=== PATIENT | male | born 1995 | race Caucasian/White ===

== ENCOUNTER 2017-04-20 22:03 | Emergency (ER) | payer OTHER ==
[~2017-04-20] VITALS: Wt 77.5 kg
[2017-04-21] MEDS ORDERED: ACETAMINOPHEN 500 MG TAB PO STA (04:18)
[2017-04-21] MEDS ORDERED: IBUP400T22 PO (04:20)
[2017-04-21] MEDS ORDERED: ACET325T33 PO (04:20)
[2017-04-21] MEDS ORDERED: OSLT75C PO (04:20)
[2017-04-21] MEDS ORDERED: IBUPROFEN 600 MG TAB PO ONE (05:30)
[2017-04-21 05:48] VITALS: BP 122/62; PULSE 94; RESP 16; TEMP 100.6
--- NOTE | 2017-04-24 13:29 | ERD ---
ER Documentation Chief Complaint Date/Time DATE: 04/24/17 TIME: 13:22 Chief Complaint AP, Body malaise. Fever x3 days HPI This is a 21 year old male presenting to ER with body aches, headache, malaise, tactile fevers and abdominal pain x 3 days. Patient denies nausea, vomiting or diarrhea. No black or bloody stools. No recent travel or recent antibiotic use. No localized area of abdominal tenderness. No dysuria, hematuria, urinary frequency or urinary urgency. Patient denies cough, shortness of breath or difficulty breathing.No sore throat or difficulty swallowing. No earache. Patient reports some nasal congestion and rhinitis. Patient reports the body aches and malaise as the most significant symptom he's having. ROS All systems reviewed and are negative except as per history of present illness. Medications Home Meds Active Scripts Ibuprofen* (Motrin*) 400 Mg Tab, 400 MG PO Q6, #15 TAB Prov:ENRIQUE OSORIO NP 04/21/17 Acetaminophen* (Tylenol*) 325 Mg Tablet, 1 TAB PO Q6 Y for PAIN AND OR ELEVATED TEMP, #20 TAB Prov:ENRIQUE OSORIO NP 04/21/17 Oseltamivir Phosphate* (Tamiflu*) 75 Mg Capsule, 75 MG PO BID for 5 Days, CAP Prov:ENRIQUE OSORIO NP 04/21/17 Allergies Allergies: Coded Allergies: No Known Allergy (Unverified , 04/20/17) PMhx/Soc Medical and Surgical Hx: pt denies Medical Hx, pt denies Surgical Hx Hx Alcohol Use: No Hx Substance Use: No Hx Tobacco Use: No Smoking Status: Never smoker Physical Exam Vitals Vital Signs Date Time Temp Pulse Resp B/P Pulse Ox O2 Delivery O2 Flow Rate FiO2 04/21/17 05:48 100.6 94 16 122/62 98 Room Air 04/20/17 22:45 101.6 100 98 117/61 100 Physical Exam Const: No acute distress, alert, oriented to person, place and time Head: Atraumatic Eyes: Normal Conjunctiva, PERRLA ENT: Normal External Ears, Nose and Mouth. Neck: Full range of motion..~ No meningismus. Resp: Clear to auscultation bilaterally. No wheezing, rhonchi or crackles. No stridor or labored breathing. Cardio: Regular rate and rhythm, no murmurs Abd: Soft, non tender, non distended. Normal bowel sounds Skin: No petechiae or rashes Back: No midline or flank tenderness Ext: No cyanosis, or edema Neur: Awake and alert Psych: Normal Mood and Affect Results 24 hrs Current Medications Medications (Trade) Dose Ordered Sig/Tyler Route PRN Reason Start Time Stop Time Status Last Admin Dose Admin Acetaminophen (Tylenol Tab) 500 mg ONCE STAT PO 04/21/17 04:18 04/21/17 04:19 DC 04/21/17 04:28 Ibuprofen (Motrin) 600 mg ONCE ONCE PO 04/21/17 05:30 04/21/17 05:31 DC 04/21/17 05:14 Procedures/MDM MDM: 21 year old male presents to ER with 3 day history of body aches, fever, malaise, headache and abdominal pain. Temp of 101.6F upon arrival to ER. Patient given Tylenol. Fever now trending down. No active vomiting or diarrhea. Abdominal exam is unremarkable. No guarding or localized tenderness. Patient's main complaint is generalized body aches and malaise. No s/s repsiratory distress. No difficulty breathing or labored breathing. No wheezing. Patient remains alert, calm and cooperative. Vital signs remain stable. Low suspicion for pneumonia, pleural effusion, pneumothorax or acute MA. Differential diagnosis includes but not limited to URI, influenza, otitis media , otitis externa, asthma exacerbation, croup, bronchitis, bronchiolitis and costochondritis. Patient is appropriate for outpatient management and will be given prescription for ibuprofen, Tylenol and Tamiflu. Instructed patient to follow-up with primary care provider in the next 2-3 days for reassessment and additional management. Return to ED for any high fever, chest pain, difficulty breathing, shortness breath, wheezing, vomiting, diarrhea, abdominal pain or any new or worsening symptoms. Patient verbalizes understanding. All questions answered at discharge. Departure Diagnosis: Primary Impression: Influenza Condition: Stable Patient Instructions: Influenza (Adult) Referrals: COMM[facility] YOU HAVE RECEIVED A MEDICAL SCREENING EXAM AND THE RESULTS INDICATE THAT YOU DO NOT HAVE A CONDITION THAT REQUIRES URGENT TREATMENT IN THE EMERGENCY DEPARTMENT. FURTHER EVALUATION AND TREATMENT OF YOUR CONDITION CAN WAIT UNTIL YOU ARE SEEN IN YOUR DOCTORS OFFICE WITHIN THE NEXT 1-2 DAYS. IT IS YOUR RESPONSIBILITY TO MAKE AN APPOINTMENT FOR FOLOW-UP CARE. IF YOU HAVE A PRIMARY DOCTOR --you should call your primary doctor and schedule an appointment IF YOU DO NOT HAVE A PRIMARY DOCTOR YOU CAN CALL OUR PHYSICIAN REFERRAL HOTLINE AT IF YOU CAN NOT AFFORD TO SEE A PHYSICIAN YOU CAN CHOSE FROM THE FOLLOWING [facility] [address] [facility] [address] [facility] [address] [facility] [address] [facility] [address] [facility]. [facility] [address] [facility]. [facility] YOU HAVE RECEIVED A MEDICAL SCREENING EXAM AND THE RESULTS INDICATE THAT YOU DO NOT HAVE A CONDITION THAT REQUIRES URGENT TREATMENT IN THE EMERGENCY DEPARTMENT. FURTHER EVALUATION AND TREATMENT OF YOUR CONDITION CAN WAIT UNTIL YOU ARE SEEN IN YOUR DOCTORS OFFICE WITHIN THE NEXT 1-2 DAYS. IT IS YOUR RESPONSIBILITY TO MAKE AN APPOINTMENT FOR FOLOW-UP CARE. IF YOU HAVE A PRIMARY DOCTOR --you should call your primary doctor and schedule and appointment IF YOU DO NOT HAVE A PRIMARY DOCTOR YOU CAN CALL OUR PHYSICIAN REFERRAL HOTLINE AT . IF YOU CAN NOT AFFORD TO SEE A PHYSICIAN YOU CAN CHOSE FROM THE FOLLOWING [facility]: [facility] [address] [place] [address] [facility] [address] [place] [address] [facility] [address] [place] [address] Additional Instructions: Call your primary care doctor TOMORROW for an appointment during the next 2-3 days.See the doctor sooner or return here if your condition worsens before your appointment time. Return to ED for any high fever, chest pain, difficulty breathing, shortness breath, wheezing, vomiting, diarrhea, abdominal pain or any new or worsening symptoms. ENRIQUE OSORIO NP April 24, 2017 13:29
== END 2017-04-21 05:50 | disposition home or self-care (01) ==
LOC: FTE 22:03
DX: J11.1 Influenza due to unidentified influenza virus with other respiratory manifestations (principal)
CPT/HCPCS: Z7610 ×2; 99283

== ENCOUNTER 2018-03-20 17:58 | Emergency (ER) | END 2018-03-20 20:31 | disposition home or self-care (01) ==

== ENCOUNTER 2018-12-20 21:33 | Emergency (ER) | payer OTHER ==
[~2018-12-20] VITALS: Ht 170.2 cm; Wt 77.2 kg
[~2018-12-20 21:33] MED LIST: ACET325T33 PO; DOCU-144 PO; IBUP-1561 PO; OSEL75CA23 PO; RANI75TA13 PO
[2018-12-20 21:38] VITALS: BP 133/67; PULSE 99; RESP 19; Ht 170.2 cm; Wt 77.2 kg
[2018-12-20] MEDS ORDERED: DEXAMETHASONE 10 MG/ML 1 ML INJ IM ONE (22:30)
[2018-12-20] MEDS ORDERED: ONDANSETRON (ODT) 4 MG TAB ODT STA (22:30)
[2018-12-20] MEDS ORDERED: IBUPROFEN 800 MG TAB PO ONE (22:30)
[2018-12-20] MEDS ORDERED: CEFTRIAXONE 1 GM INJ IM ONE (22:30)
--- NOTE | 2018-12-20 22:30 | ERD ---
ER Documentation Chief Complaint Chief Complaint ST WITH FEVER X1DAY HPI This is a 23-year-old male who presents here in emergency department with complaints of left-sided throat pain since yesterday and fever. Denies headache, head injury, loss of consciousness, dizziness, neck pain, neck stiffness, throat pain, difficulty swallowing, difficulty breathing lying flat, shoulder pain, chest pain, back pain, abdominal pain, nausea, vomiting, c onstipation, diarrhea, urinary symptoms, loss of bowel and bladder control, trauma, injury, falls, difficulty walking due to pain, numbness or tingling sensation, calf pain, recent travel, recent major surgery in the last 3 weeks, calf pain, recent long travel, recent exposure to any illness, recent antibiotic use in the last 3 months, fever, chills, seizures. Past medical history: Surgical history: Social: Denies smoking, use of alcoholic beverages, use of illegal drugs. ROS All systems reviewed and are negative except as per history of present illness. Medications Home Meds Active Scripts Ondansetron Hcl* (Zofran*) 4 Mg Tablet, 4 MG PO Q8H PRN for NAUSEA AND/OR VOMITING, #30 TAB Prov:NAVDEEP TREVINO 12/20/18 Benzonatate* (Tessalon Perle*) 100 Mg Capsule, 100 MG PO Q8H PRN for COUGH, #15 CAP Prov:NAVDEEP TREVINO 12/20/18 Prednisone* (Prednisone*) 20 Mg Tab, 40 MG PO DAILY for 2 Days, TAB Prov:NAVDEEP TREVINO 12/20/18 Ibuprofen* (Motrin*) 800 Mg Tab, 800 MG PO Q6H PRN for PAIN AND OR ELEVATED TEMP, #30 TAB Prov:NAVDEEP TREVINO 12/20/18 Amoxicillin/Potassium Clav (Amox-Clav 875-125 mg Tablet) 875-125 mg Tab, 1 TAB PO BID for 10 Days, #20 TAB Prov:NAVDEEP TREVINO 12/20/18 Ranitidine Hcl* (Zantac*) 75 Mg Tablet, 75 MG PO BID for 10 Days, #20 TAB Prov:MARLON TRAMMELL-Khloe 03/20/18 Docusate Sodium* (Colace*) 100 Mg Capsule, 100 MG PO BID, #60 CAP Prov:MARLON TRAMMELL-C 03/20/18 Ibuprofen* (Motrin*) 400 Mg Tab, 400 MG PO Q6, #15 TAB Prov:ENRIQUE OSORIO NP 04/21/17 Acetaminophen* (Tylenol*) 325 Mg Tablet, 1 TAB PO Q6 PRN for PAIN AND OR ELEVATED TEMP, #20 TAB Prov:ENRIQUE OSORIO NP 04/21/17 Oseltamivir Phosphate* (Tamiflu*) 75 Mg Capsule, 75 MG PO BID for 5 Days, CAP Prov:ENRIQUE OSORIO NP 04/21/17 Allergies Allergies: Coded Allergies: No Known Allergy (Unverified , 12/20/18) PMhx/Soc Medical and Surgical Hx: pt denies Medical Hx, pt denies Surgical Hx History of Surgery: No Anesthesia Reaction: No Hx Neurological Disorder: No Hx Respiratory Disorders: No Hx Cardiac Disorders: No Hx Psychiatric Problems: No Hx Miscellaneous Medical Probl: No Hx Alcohol Use: No Hx Substance Use: No Hx Tobacco Use: No Smoking Status: Never smoker Physical Exam Vitals Vital Signs Date Temp Pulse Resp B/P (MAP) Pulse Ox O2 O2 Flow FiO2 Time Delivery Rate 12/20/18 99.9 22:57 12/20/18 99.8 99 19 133/67 99 21:38 (89) Physical Exam Const: No acute distress Head: Atraumatic Eyes: Normal Conjunctiva ENT: Normal External Ears, Nose and Mouth. Bilateral ears: TMs are erythematous. No bleeding. No discharge. No mastoid tenderness. Nose: Midline. There is frontal and maxillary sinus tenderness to palpation. Throat: Uvula is midline and nondisplaced. Tonsils are +2 with redness and exudates. Tolerating secretions. Patent airway. Speaks full and clear sentences. No tripoding. Able to control tongue movement. Neck: Full range of motion. No meningismus. No nuchal rigidity. No signs of meningeal irritation. Resp: Clear to auscultation bilaterally Cardio: Regular rate and rhythm, no murmurs Abd: Soft, non tender, non distended. Normal bowel sounds. No epigastric tenderness. Skin: No petechiae or rashes Back: No midline or flank tenderness Ext: No cyanosis, or edema Neur: Awake and alert. No neurological deficit. Psych: Normal Mood and Affect Results 24 hrs Current Medications Medications Dose Sig/Tyler Start Time Status Last (Trade) Ordered Route PRN Stop Time Admin Dose Reason Admin Ceftriaxone 1 gm ONCE ONCE 12/20/18 DC 12/20/18 Sodium IM 22:30 22:58 (Rocephin) 12/20/18 22:31 10 mg ONCE ONCE 12/20/18 DC 12/20/18 Dexamethasone IM 22:30 22:58 (Decadron) 12/20/18 22:31 Ibuprofen 800 mg ONCE ONCE 12/20/18 DC 12/20/18 (Motrin) PO 22:30 22:57 12/20/18 22:31 Ondansetron 4 mg ONCE STAT 12/20/18 DC 12/20/18 HCl (Zofran ODT 22:30 22:57 Odt) 12/20/18 22:31 Lidocaine 20 ml ONCE ONCE 12/20/18 DC 12/20/18 (Xylocaine SC 23:00 22:59 1% (Mdv) 20 12/20/18 23:01 ml) Procedures/MDM Diagnostic tests: Clinical exam. Treatment: Ceftriaxone IM. Dexamethasone IM. Zofran ODT. Motrin. Tylenol. Re-evaluation: No episode of emesis here in the emergency department. Temperature responded to antipyretic medication. No drooling. Able to control tongue movement. Tolerating liquids by mouth. No neck stiffness. No neurological deficits. Stated that he feels much better at this time and that he is ready to go home. Differential diagnosis I have low suspicion for sepsis, mastoiditis, meningitis, peritonsillar abscess, pneumonia, severe dehydration. Final diagnosis: Exudative tonsillitis. Sinusitis. Otitis media. Prescription: Augmentin. Motrin. Tylenol. Tessalon Perles. Follow-up with PCP in the next 24-48 hours. Come back here in the emergency dep artment for any new symptoms or any worsening symptoms. All questions and concerns were answered. Patient and family members verbalized understanding and agreed with plan of care. Hemodynamically stable on discharge. Departure Diagnosis: Primary Impression: Exudative tonsillitis Additional Impressions: Sinusitis Otitis media Condition: Stable Additional Instructions: Follow-up with PCP in the next 24-48 hours. Come back here in the emergency department for any new symptoms or any worsening symptoms. NAVDEEP TREVINO Dec 20, 2018 22:30
[2018-12-20] MEDS ORDERED: IBUP800T48 PO (22:46)
[2018-12-20] MEDS ORDERED: AMOX1TAB10 PO (22:46)
[2018-12-20] MEDS ORDERED: BENZ-6 PO (22:46)
[2018-12-20] MEDS ORDERED: PRED20TA PO (22:46)
[2018-12-20] MEDS ORDERED: ONDA4TAB8 PO (22:47)
[2018-12-20] MEDS ORDERED: LIDOCAINE 1% (MDV) 20 ML INJ SC ONE (23:00)
== END 2018-12-20 23:36 | disposition home or self-care (01) ==
LOC: FTE 21:33
DX: J03.90 Acute tonsillitis, unspecified (principal); J32.9 Chronic sinusitis, unspecified; H66.93 Otitis media, unspecified, bilateral
CPT/HCPCS: 96372; J0696; J1100; Z7502; Z7610

== ENCOUNTER 2019-10-01 11:32 | Emergency (ER) | payer OTHER ==
[~2019-10-01] VITALS: Ht 170.2 cm; Wt 82.5 kg
[~2019-10-01 11:32] MED LIST changes: +AMOX1TAB10 PO; +BENZ-6 PO; +DICY10CA40 PO; +IBUP-1542 PO; +IBUP800T48 PO; +ONDA4TAB8 PO; +ONDA8TAB14 PO; +PRED20TA PO; +RANI-287 PO; -RANI75TA13 PO
[2019-10-01 11:35] VITALS: BP 133/63; PULSE 108; RESP 16; Ht 170.2 cm; Wt 82.5 kg
== END 2019-10-01 12:33 | disposition home or self-care (01) ==
LOC: FTE 11:32
DX: Z09 Encounter for follow-up examination after completed treatment for conditions other than malignant neoplasm (principal)